=== PATIENT | male | born 1990 | race Caucasian/White ===

== ENCOUNTER 2017-03-14 14:21 | Emergency (ER) | payer SELFPAY ==
[2017-03-14 14:44] VITALS: RESP 16; TEMP 97.3
[2017-03-14] MEDS ORDERED: Sodium Chloride 0.9% 1,000 ML PRIMARY IV ONE (14:49)
[2017-03-14] MEDS ORDERED: Meperidine Inj 50 MG/ML CARPUJECT IVP ONE (14:49)
[2017-03-14] MEDS ORDERED: KETOROLAC 15 MG/1 ML VIAL IVP ONE (14:49)
[2017-03-14] MEDS ORDERED: ONDANSETRON 4 MG/2 ML VIAL IVP ONE (14:49)
[2017-03-14] MEDS ORDERED: NORMAL SALINE 10 ML SYRINGE FLUSH IVP PRN (14:51)
[2017-03-14] MEDS: KETOROLAC 30 MG/1 ML VIAL IM ONE ×2 (14:57→14:59)
[2017-03-14] MEDS: MEPERIDINE HCL/PF 100 MG/1 ML INJECTION IM ONE ×2 (14:58→14:59)
--- NOTE | 2017-03-14 15:05 | PDOC ---
Upper Extremity Problem HPI - General Chief Complaint: Upper Extremity Problem/Injury Stated Complaint: LEFT ELBOW PAIN Date Seen by Provider: 03/14/17 Time Seen by Provider: 14:52 Source: POSITIVE: Patient - History of Present Illness Initial Comments: This patient is a 27-year-old gentleman who has traveled here to [place] from [facility] for viewing of the eclipse. He states that he is been having a lot of elbow problems has had multiple dislocations and then required a external fixator to be placed on his left arm due to multiple frequent dislocations of that arm. He states he's been on pain medication over the last month or 2 due to these recurrent dislocations and most recently due to his surgery. He states he has had no trauma to this arm he's had no fever chills increased arm swelling or any other concerning physical findings or symptoms except for increase of substantial pain in that left arm. He states that he hasn't taken any pain medication since he left a day or 2 ago. He denies having dependence upon narcotics in the past. He denies withdrawal symptoms in the past as well. He states that he has been taking oxycodone that he does not have any with him because he didn't bring any on this trip with him and is complaining that his arm pain is severe. - Patient Home Medications Home Medications: Home Medications FLUoxetine HCl [PROzac] 20 mg PO DAILY 03/14/17 HYDROcodone/APAP 5/325 Tab [[place] 5/325 Tab] 2 tab PO .Q4-6H PRN 03/14/17 Losartan [Cozaar] 25 mg PO DAILY 03/14/17 Zolpidem Tartrate [Ambien] 10 mg PO BEDTIME 03/14/17 - Patient Allergies Allergies/Adverse Reactions: Allergies Allergy/AdvReac Type Severity Reaction Status Date / Time No Known Allergies Allergy Verified 03/14/17 14:24 Past Medical History - heen HEENT History: Denies History Cardiovascular History: Hypertension Respiratory History: Denies History Gastrointestinal History: Denies History Genitourinary History: Denies History Endocrine History: Denies History Musculoskeletal History: Joint Pain Prosthesis or Implant: No Neurological History: Denies History Blood Disorders: Denies History Psychiatric History: Denies History History of Sexually Transmitted Diseases: No Male Reproductive History: Denies History Cancer History: Denies History In Past Year Been Physically Harmed or Verbally Threatened: No History of MDRO: No History of Other Communicable Diseases: No Tobacco Use: Never Smoker Alcohol Use: Occasionally Type of alcohol normally used: Beer Substance Use Type: None Previous Surgical History: Yes Type / Date of Surgery: OCTOBER 2016, LEFT ELBOWSUGERY TO REPAIR A DISLOCATION Anesthesia Reactions: No Malignant Hyperthermia: No Family History of Malignant Hyperthermia: No Significant Family History: Hypertension Past Medical History Reviewed: Reviewed - No Changes ROS - Limitations ROS Limitations: No Limitations Constitution: REPORTS: Denies Symptoms. DENIES: Chills, Fever Cardiovascular: REPORTS: Denies Cardiac Symptoms Respiratory: REPORTS: Denies Resp Symptoms Neurological: REPORTS: Denies Neuro Symptoms Gastrointestinal: REPORTS: Nausea Upper Extremity Problem Exam - General Appearance General Appearance: POSITIVE: Alert, Cooperative, Anxious - Upper Extremity Upper Extremity: POSITIVE: Other (Left upper extremity has an external fixator in place in the lateral aspect of his forearm with obvious pins into the bone up through it into his humerus with pin placements as well. None of these appear to be particularly erythematous or draining pus or infected. He has good circulation in his distal arm and hand normal capillary refill time normal pulses no pallor or substantial swelling. Otherwise extremities benign) - Neuro / Psych Peripheral Neuro Exam: POSITIVE: Sensation Normal, Motor Normal Central Neuro Exam: POSITIVE: Oriented to Person, Oriented to Place, Oriented to Time - HEENT HEENT: POSITIVE: Head Inspection Nml, Eyes Inspection Nml - Respiratory / CVS Respiratory / CVS: POSITIVE: No Respiratory Distress - Abdomen Abdomen: Soft: (All Quadrants), Normal Bowel Sounds: (All Quadrants), Denies Tenderness: (All Quadrants) Upper Ext Problem Progress - Patient's Progress MDM / ED Course: This young man presented with substantial concerns about pain in his arm. There is no obvious physical findings that suggested any further imaging needed to be done or labs. Actually the patient requested that we not do any this workup here as he wanted to get down to his surgeon in [place] before any further workup or to be done. I had a discussion with the patient and his significant other that I believe he likely has narcotic dependence and likely some narcotic withdrawal as one dose of Demerol IV did causes nausea to improve improved his pain and he is much less anxious. I have told him that if this is not related to narcotic dependence or withdrawal that he may have something more concerning going on in his arm i.e. intra-articular infection or thrombosis of some sort or something more concerning and a more substantial workup need to be done to try to determine this. They are wanting to be discharged as soon as possible to get back down to [place]. This is reasonable. I am going to give him the benefit of the doubt and give him a dose of IV Demerol and IV Toradol and some Zofran for his symptoms and let them get back on the road. He understands he cannot drive while under the influence of these medications. Patient Care Time - Estimated PCT Patient Care Time (In Minutes): 30 Vital Signs - Recent Vital Signs Vital Signs: Vital Signs (Last 8 hours) Temp Pulse Resp BP Pulse Ox 03/14/17 14:28 97.3 F 104 H 16 132/74 99 03/14/17 14:21 97.2 F 104 H 18 132/74 99 - VS Reviewed Vital Signs Reviewed: Yes Discharge Clinical Impression: Elbow pain, left, Post-operative pain Opiate dependence Qualifiers: Substance use status: uncomplicated Qualifier Code: (F11.20) Opioid dependence , uncomplicated Discharge Disposition: Discharged to Home Condition: Stable Patient Instructions Given at Discharge: Opioid Dependence (ED), Opioid Withdrawal (ED), Arm Pain (ED) Additional Instructions: Follow-up with your orthopedic surgeon through the emergency department in [place] as soon as you get back tonight Do not drive while under the influence of narcotics. Follow Up With: NOT IN TABLE, [Primary Care Provider] -
== END 2017-03-14 15:38 | disposition home or self-care (01) ==
LOC: ER 14:21
DX: M25.522 Pain in left elbow (principal); F11.20 Opioid dependence, uncomplicated
CPT/HCPCS: 96374; 96375; 99282; 99283; J1885; J2405; J2175; J7030